=== PATIENT | female | born 1995 | race Caucasian/White ===

== ENCOUNTER 2017-05-29 10:51 | Inpatient (IN) | payer OTHER ==
[~2017-05-29] VITALS: Ht 165.1 cm; Wt 64.9 kg
[2017-05-29 12:15] LABS: BASO % 0.2 %; BASO ABS # 0.02 K/uL (0-0.2); EOS % 0.3 %; EOS ABS # 0.03 K/uL (0-0.5); HEMATOCRIT 40.8 % (37-47); IG# 0.01 K/uL (0.00-0.02); LYMPH % 18.4 %; LYMPH ABS # 1.81 K/uL (1.2-3.4); MEAN CELL VOLUME 87.6 fL (80-100); MEAN CORPUSCULAR HGB CONC 34.3 g/dl (32-36); MEAN PLATELET VOLUME 10.5 fL (7.4-10.4); MONO ABS # 0.39 K/uL (0.11-0.59); NEUT ABS # 7.57 K/uL (1.4-6.5); PLATELET COUNT 204 K/uL (130-400); RED CELL DISTRIBUTION WIDTH CV 13.1 % (11.5-14.5); RED CELL DISTRIBUTION WIDTH SD 42.1 fL (36.4-46.3); WHITE BLOOD COUNT 9.83 K/uL (4.8-10.8)
[2017-05-29] MEDS ORDERED: BCPILLS PO (12:27)
[2017-05-29 12:39] LABS: ALBUMIN 3.7 gm/dl (3.4-5.0); AST/SGOT 11 U/L (15-37); BLOOD UREA NITROGEN 14 mg/dl (7-18); CALCIUM 9.1 mg/dl (8.5-10.1); CARBON DIOXIDE 23 mmol/L (21-32); CREATININE 0.97 mg/dl (0.60-1.20); GLUCOSE 78 mg/dl (70-99); POTASSIUM 3.7 mmol/L (3.5-5.1); SODIUM 138 mmol/L (136-145)
[2017-05-29 12:53] LABS: ALKALINE PHOSPHATASE 52 U/L (45-117); ALT/SGPT 14 U/L (12-78); TOTAL PROTEIN 7.2 gm/dl (6.4-8.2)
[2017-05-29] MEDS ORDERED: CEPHALEXIN MONOHYDRATE 250 MG CAP PO ONE (13:00)
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
[2017-05-29] MEDS ORDERED: hydrOXYzine HCL 25 MG TAB PO PRN ×2 (13:30)
[2017-05-29] MEDS ORDERED: ACETAMINOPHEN 325 MG TAB PO PRN (13:30)
[2017-05-29] MEDS ORDERED: ALUMINUM/MAGNESIUM SUSP 30 ML UDC PO PRN (13:30)
[2017-05-29] MEDS ORDERED: MAGNESIUM HYDROXIDE SUSP 30 ML UDC PO PRN (13:30)
[2017-05-29] MEDS ORDERED: BISMUTH SUBSALICYLATE PER ML OMNICELL CHARGE PO PRN (13:30)
[2017-05-29] MEDS ORDERED: SODIUM CHLORIDE 0.65% NA SOLN 45 ML (OCEAN) PRN (13:30)
[2017-05-29 13:39] VITALS: O2SAT 98
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
[2017-05-29 14:42] VITALS: BP 138/79; PULSE 80; TEMP 36.5; Ht 165.1 cm; Wt 64.9 kg
[2017-05-29] MEDS ORDERED: SERTRALINE HCL 50 MG TAB PO ONE (15:00)
[2017-05-29] MEDS ORDERED: NURSING VERBAL MED ORDER ONE (21:00)
[2017-05-29] MEDS: CEPHALEXIN MONOHYDRATE 500 MG CAP PO SCH (21:00)
[2017-05-30 07:13] VITALS: BP_SYST 120; BP_SYST 122; BP_DIAS 80; BP_DIAS 82; PULSE 67; PULSE 86; TEMP 36.5
[2017-05-30] MEDS: CEPHALEXIN MONOHYDRATE 500 MG CAP PO SCH ×2 (08:40→21:20)
[2017-05-30] MEDS: SERTRALINE HCL 50 MG TAB PO SCH (08:40)
[2017-05-30] MEDS ORDERED: TRI LO MARZIA PO SCH ×2 (09:00→14:00)
--- NOTE | 2017-05-30 11:26 | Psychiatric Progress Notes ---
Progress Note Date of Service May 30, 2017. 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 Chief Complaint "I definitely feel better.". Subjective Patient was seen & assessed interval progress reviewed with Treatment Team. The patient says that her mother came to town and visited last evening. They were tearful together, "but my mom helped talk me down" which she appreciated. Her boyfriend visited as well. She reports some mild nausea after taking her first Zoloft pill yesterday but none today. She is adjusting to the unit and her peers, and sees through their pain, that she wants to take care of her mood issues now so that they don't lead to more problems down the road. She denies any SI today. She has been working on her work book, trying to learn all that she can about coping strategies. She woke early this AM with anxiety, but decided to cope by exercising, watching the news and writing down all the things she needs to do when she is discharged so that she didn't continue to worry about them. Review of Systems Constitutional: No fever, No chills, No sweats, No weight loss, No weakness, No fatigue, No problem reported ENT: No hearing loss, No unusual epistaxis, No nasal symptoms, No sore throat, No tinnitus, No dental problems, No trouble swallowing, No problem reported Respiratory: No cough, No sputum, No wheezing, No shortness of breath, No dyspnea on exertion, No dyspnea at rest, No hemoptysis, No problem reported Cardiovascular: No chest pain, No orthopnea, No PND, No edema, No claudication , No palpitations, No problem reported Abdomen: + nausea (transient after first zoloft pill) Musculoskeletal: No joint pain, No muscle pain, No swelling, No calf pain, No problem reported Neurologic: No memory loss, No paralysis, No weakness, No numbness/tingling, No vertigo, No balance problems, No problem reported Psychiatric: + depression symptoms, + anxiety Sleep Information Total Hours of Sleep: 7.25 Meal Information Percent of Breakfast Consumed: 100 Percent of Dinner Consumed: 90 Mental Status Exam During interview pt is: alert and oriented, cooperative Appearance: appropriately dressed, appropriately groomed Eye contact is: good Motor behavior is: steady gait & station, no abnormal motor movements Speech: normal in rate, rhythm & volume Affect: mood congruent, depressed, tearful Mood is: depressed, anxious Thought process: goal directed Thought content: reality based without delusions Suicidal thought are: present, Plan: present, Intent: denied Homicidal thoughts are: denied Hallucinations: denies auditory, denies visual Cognition: memory grossly intact, attention grossly intact, language grossly intact Intelligence estimated to be: average Insight: impaired Judgement: impaired Impression Adjusting to the unit, and tolerating initial doses of Zoloft. Will have a family meeting today. Continue current meds. Plan (1) Major depressive disorder, recurrent severe without psychotic features 05/29 - Start Zoloft 25 mg daily increasing to 50 mg tomorrow - Will use when necessary Vistaril for anxiety and sleep - Assist the patient to explore additional healthy coping strategies including mindfulness, grounding and meditation - Every 15 minute checks for safety - Encourage participation in group and individual counseling - Family meeting - Coordinate with her current therapist and refer for outpatient prescriber - Contact the University as needed 05/30 - Continue current meds - Family meeting today Discharge / Aftercare Planning Primary Care Physician: Name: [facility], [place], [place] Therapist: Name: Aleida Calzada CAPS Date of Appointment: Jun 05, 2017 Time of Appointment: 9:00am Visit Code E&M Code: 19635 Inventory Assets Strengths: Cares for others, wants to do well Needs: Increase coping strategies Risk Factors Assessment : Yes /single/: Yes Higher / Fall in social status: No Health problems: No Mental Health Diagnoses: Yes Substance use disorders: No Previous attempt: No Previous psychiatric stay: No Hopelessness: No Smoker: No Protective Factors Assessment Pentecostal beliefs: No : No Responsible for young children: No Employed: No Stable relationships: Yes Supportive family: Yes Data Vital Signs Last 24 Hrs: Date Time Temp Pulse Resp B/P (MAP) Pulse Ox O2 Delivery O2 Flow Rate FiO2 05/30/17 07:13 36.5 67 16 122/80 86 120/82 05/29/17 14:42 36.5 80 18 138/79 05/29/17 13:39 36.5 90 18 138/79 98 05/29/17 11:14 36.5 90 18 138/79 98 Room Air Meds Administered Last 24 Hrs: Meds Administered (Past 24Hrs) Medications (Trade) Dose Ordered Sig/Babita Route Start Time Stop Time Status Last Admin Dose Admin Cephalexin Monohydrate (Keflex Cap) 500 mg NOW ONCE PO 05/29/17 13:00 05/29/17 13:01 DC 05/29/17 13:00 500 MG Sertraline HCl (Zoloft Tab) 50 mg QAM PO 05/30/17 09:00 06/29/17 08:59 05/30/17 08:40 50 MG Sertraline HCl (Zoloft Tab) 25 mg 1500 ONCE PO 05/29/17 15:00 05/29/17 15:01 DC 05/29/17 15:27 25 MG Cephalexin Monohydrate (Keflex Cap) 500 mg Q12H PO 05/29/17 21:00 06/04/17 14:59 05/30/17 08:40 500 MG Lab Results Last 24 Hrs: Last 24 Hours Test 05/29/17 11:30 05/29/17 11:55 05/29/17 12:03 Urine Color YELLOW Urine Appearance CLEAR Urine pH 6.0 Urine Specific [place] 1.018 Urine Protein NEG Urine Glucose (UA) NEG Urine Ketones NEG Urine Occult Blood NEG Urine Nitrite POS Urine Bilirubin NEG Urine Urobilinogen NEG Urine Leukocyte Esterase NEG Urine WBC (Auto) 1-5 /hpf Urine RBC (Auto) 10-30 /hpf Urine Hyaline Casts (Auto) 0 /lpf Urine Epithelial Cells (Auto) >30 /lpf Urine Bacteria (Auto) 4+ Urine Test NEG Urine Opiates Screen NEG Urine Methadone, Qualitative NEG Urine Barbiturates NEG Urine Phencyclidine (PCP) Level NEG Ur Amphetamine/Methamphetamine NEG MDMA (Ecstasy) Screen NEG Urine Benzodiazepines Screen NEG Urine Cocaine Metabolite NEG Urine Marijuana (THC) NEG Bedside Glucose 78 mg/dl White Blood Count 9.83 K/uL Red Blood Count 4.66 M/uL Hemoglobin 14.0 g/dL Hematocrit 40.8 % Mean Corpuscular Volume 87.6 fL Mean Corpuscular Hemoglobin 30.0 pg Mean Corpuscular Hemoglobin Concent 34.3 g/dl Platelet Count 204 K/uL Mean Platelet Volume 10.5 fL Neutrophils (%) (Auto) 77.0 % Lymphocytes (%) (Auto) 18.4 % Monocytes (%) (Auto) 4.0 % Eosinophils (%) (Auto) 0.3 % Basophils (%) (Auto) 0.2 % Neutrophils # (Auto) 7.57 K/uL Lymphocytes # (Auto) 1.81 K/uL Monocytes # (Auto) 0.39 K/uL Eosinophils # (Auto) 0.03 K/uL Basophils # (Auto) 0.02 K/uL RDW Standard Deviation 42.1 fL RDW Coefficient of Variation 13.1 % Immature Granulocyte % (Auto) 0.1 % Immature Granulocyte # (Auto) 0.01 K/uL Sodium Level 138 mmol/L Potassium Level 3.7 mmol/L Chloride Level 109 mmol/L Carbon Dioxide Level 23 mmol/L Anion Gap 7.0 mmol/L Blood Urea Nitrogen 14 mg/dl Creatinine 0.97 mg/dl Est Creatinine Clear Calc Drug Dose 83.2 ml/min Estimated GFR () 97.4 Estimated GFR (Non- 84.1 BUN/Creatinine Ratio 14.0 Random Glucose 78 mg/dl Calcium Level 9.1 mg/dl Total Bilirubin 0.4 mg/dl Direct Bilirubin < 0.1 mg/dl Aspartate Amino Transf (AST/SGOT) 11 U/L Alanine Aminotransferase (ALT/SGPT) 14 U/L Alkaline Phosphatase 52 U/L Total Protein 7.2 gm/dl Albumin 3.7 gm/dl Thyroid Stimulating Hormone (TSH) 0.514 uIu/ml Salicylates Level < 1.7 mg/dl Acetaminophen Level < 2 ug/ml Ethyl Alcohol mg/dL < 3.0 mg/dl
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
[2017-05-31 06:49] VITALS: BP_SYST 113; BP_SYST 116; BP_DIAS 77; BP_DIAS 84; PULSE 84; PULSE 88; TEMP 37
[2017-05-31] MEDS: CEPHALEXIN MONOHYDRATE 500 MG CAP PO SCH (08:54)
[2017-05-31] MEDS: SERTRALINE HCL 50 MG TAB PO SCH (08:55)
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
[2017-05-31] MEDS ORDERED: ZLF50 PO (09:19)
[2017-05-31] MEDS ORDERED: KFL500 PO (09:19)
== END 2017-05-31 10:28 | disposition home or self-care (01) | DRG 885 ==
LOC: C.EDB 10:54 → C.MHU 14:21
PROVIDERS: ADMIT Psychiatry & Neurology Child & Adolescent Psychiatry; ATTEND Psychiatry & Neurology Psychiatry
DX: F33.2 Major depressive disorder, recurrent severe without psychotic features (principal); R45.851 Suicidal ideations; N39.0 Urinary tract infection, site not specified; F12.90 Cannabis use, unspecified, uncomplicated; Z91.410 Personal history of adult physical and sexual abuse; Z72.89 Other problems related to lifestyle; Z79.3 Long term (current) use of hormonal contraceptives